=== PATIENT | female | born 1965 | race Caucasian/White ===

== ENCOUNTER 2017-12-07 14:09 | Emergency (ER) | payer MEDICARE, MEDICAID ==
[2017-12-07] MEDS ORDERED: Famotidine IV* 10 MG/ML 2 ML (20 mg) IV SLOW PU ONE (14:23)
[2017-12-07] MEDS ORDERED: predniSONE TAB* 20 MG PO ONE (14:23)
[2017-12-07] MEDS ORDERED: NS 0.9% 500 ML* 500 ML IV ONE (14:29)
[2017-12-07 15:22] VITALS: BP 127/84
--- NOTE | 2017-12-07 16:35 | ED ---
Allergic Reaction/Systemic - HPI Summary HPI Summary: Patient is a 52 y/o F BIBA w/ c/o wasp sting at left thumb today one hour ago. She states she was outside of her home when wasp sting occurred. She reports experiencing LAUGHLIN, nausea, shakiness, and light headedness. LAUGHLIN is noted to be frontal. There is also a small area of hives at left wrist proximal to sting. Patient denies SOB, throat/lip swelling, chest pain. Patient reports taking 50 mg Benadryl and epi-pen. Patient reports Hx of allergic reactions to wasp stings , with last incident of allergic reaction to wasp sting occurring two years ago. Home medications and allergies are reviewed. On triage, pain at site of sting is rated 2/10, nothing is noted to aggravate/alleviate Sx. - History of Current Complaint Chief Complaint: EDAllergicReaction Time Seen by Provider: 12/07/17 14:18 Hx Obtained From: Patient Onset/Duration: Started hours ago - one hour ago Timing: Lasting Hours - one hour ago Severity Currently: Moderate - 2/10 Pain Intensity: 2 Pain Scale Used: 0-10 Numeric - 2/10 Location: Discrete @ - left thumb Aggravating Factor(s): Nothing Alleviating Factor(s): Nothing Associated Signs And Symptoms: Positive: Lightheadedness, Nausea, Other: - POSITIVE: LAUGHLIN, shakiness, hives NEGATIVE: SOB, chest pain, throat/lip swelling. Negative: Chest Pain - Allergies/Home Medications Allergies/Adverse Reactions: Allergies Allergy/AdvReac Type Severity Reaction Status Date / Time ceftriaxone Allergy Hives Verified 12/07/17 14:20 wasp venom Allergy Hives Uncoded 12/07/17 14:47 PMH/Surg Hx/FS Hx/Imm Hx Sensory History: Denies: Hx Legally Blind, Hx Deafness Opthamlomology History: Denies: Hx Legally Blind EENT History: Denies: Hx Deafness Infectious Disease History: No Infectious Disease History: Denies: Traveled Outside the [place] in Last 30 Days - Family History Known Family History: Positive: Cardiac Disease - father - Social History Alcohol Use: None Substance Use Type: Reports: None Smoking Status (MU): Never Smoked Tobacco Review of Systems Positive: Other - POSITIVE: wasp sting, shakiness Positive: Other - NEGATIVE: throat/lip swelling Negative: Chest Pain Negative: Shortness Of Breath Positive: Nausea Neurological: Other - POSITIVE: light-headedness Positive: Headache All Other Systems Reviewed And Are Negative: Yes Physical Exam - Summary Physical Exam Summary: Appearance: Well appearing, no pain distress Skin: warm, dry, reflects adequate perfusion; erythema of left thumb with a puncture from wasp sting Head/face: normal Eyes: EOMI, OZZY ENT: mucous membranes moist Neck: supple, non-tender Respiratory: CTA, breath sounds present Cardiovascular: RRR, pulses symmetrical Abdomen: non-tender, soft Bowel Sounds: present Musculoskeletal: normal, strength/ROM intact Neuro: normal, sensory motor intact, A&Ox3 Triage Information Reviewed: Yes Vital Signs On Initial Exam: Initial Vitals Temp Pulse Resp BP Pulse Ox 99.0 F 89 16 140/86 100 12/07/17 14:13 12/07/17 14:13 12/07/17 14:13 12/07/17 14:13 12/07/17 14:13 Vital Signs Reviewed: Yes Diagnostics - Vital Signs Vital Signs Temp Pulse Resp BP Pulse Ox 12/07/17 15:24 98.5 F 81 16 127/84 100 12/07/17 15:00 80 17 100 12/07/17 14:47 82 15 127/84 99 12/07/17 14:18 87 14 140/86 100 12/07/17 14:16 90 100 12/07/17 14:13 99.0 F 89 16 140/86 100 - Laboratory Lab Statement: Any lab studies that have been ordered have been reviewed, and results considered in the medical decision making process. Allergic Reaction Course/Dx - Course Course Of Treatment: Patient with allergy to bee stings who was stung in the left thumb. She had symptoms which were improving with self-administered epinephrine. She was hydrated here given steroid and Pepcid with improvement. She was able to be discharged in good condition. EpiPen, etc. were refilled. - Diagnoses Provider Diagnoses: Wasp sting, Headache, Allergic reaction to insect bite Discharge - Sign-Out/Discharge Documenting (check all that apply): Patient Departure - discharge - Discharge Plan Condition: Improved Disposition: HOME Prescriptions: EPINEPHrine [Epipen 2-Tani] 0.3 mg IM ONCE PRN #2 box PRN Reason: severe allergy symptoms Famotidine TAB* [Pepcid 20 MG TAB*] 20 mg PO BID #20 tab predniSONE TAB* [Deltasone TAB*] 50 mg PO DAILY #3 tab Patient Education Materials: Insect Bite or Sting (ED), Anaphylaxis (ED) Referrals: Ramana Shook MD [Primary Care Provider] - Additional Instructions: Ice the area of bee sting. Hydrocortisone can be applied to this area. Return if force, new symptoms or other concerns. Always carry your EpiPen. - Billing Disposition and Condition Condition: IMPROVED Disposition: Home - Attestation Statements Document Initiated by Lennox: Yes Documenting Scribe: Margarito Orta Provider For Whom Lennox is Documenting (Include Credential): Babar March MD Scribe Attestation: Margarito Griffith, scribed for Babar March MD on 12/07/17 at 1845. Scribe Documentation Reviewed: Yes Provider Attestation: The documentation as recorded by the Margarito belol accurately reflects the service I personally performed and the decisions made by me, Babar March MD
== END 2017-12-07 15:24 | disposition home or self-care (01) ==
LOC: ED 14:09
DX: T63.461A Toxic effect of venom of wasps, accidental (unintentional), initial encounter (principal); Y92.007 Garden or yard of unspecified non-institutional (private) residence as the place of occurrence of the external cause; Z88.8 Allergy status to other drugs, medicaments and biological substances
CPT/HCPCS: 96374; 99283; J7512

== ENCOUNTER 2018-09-08 10:44 | Emergency (ER) | payer MEDICAID, MEDICARE, OTHER ==
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
[2018-09-08 12:24] LABS: Albumin 4.1 g/dL (3.2-5.2); Albumin/Globulin Ratio 1.4 (1-3); BUN/Creatinine Ratio 13.5 (8-20); Calcium 9.4 mg/dL (8.6-10.3); EGFR Non-African American 81.8 (>60); Globulin 2.9 g/dL (2-4); Potassium 4.3 mmol/L (3.5-5.0); Total Bilirubin 0.4 mg/dL (0.2-1.0)
[2018-09-08 13:54] VITALS: BP 124/87
== END 2018-09-08 14:09 | disposition home or self-care (01) ==
LOC: ED 10:44
DX: S16.1XXA Strain of muscle, fascia and tendon at neck level, initial encounter (principal); V43.52XA Car driver injured in collision with other type car in traffic accident, initial encounter; Y92.410 Unspecified street and highway as the place of occurrence of the external cause
CPT/HCPCS: 36415; 70450; 72125; 80053; 99283